=== PATIENT | male | born 1985 | race Caucasian/White ===

== ENCOUNTER 2023-07-05 22:36 | Inpatient (IN) | payer MEDICAID ==
[~2023-07-05] VITALS: Ht 182.9 cm; Wt 60.5 kg
[2023-07-05 22:43] VITALS: BP 121/79; PULSE 75; RESP 16; TEMP 97.4; O2SAT 98
[2023-07-05] MEDS ORDERED: NACL 0.9% 1,000 ML IV ONE (22:55)
[2023-07-05 23:06] LABS: BASOPHILS # (AUTO) 0.2 K/uL (0.00-0.22); BASOPHILS % (AUTO) 3.6 % (0.0-2.0); EOSINOPHILS # (AUTO) 0.1 K/uL (0-0.4); EOSINOPHILS % (AUTO) 1.1 % (0.0-4.0); LYMPHOCYTES % (AUTO) 45.2 % (20.5-51.1); MEAN CORPUSCULAR HEMOGLOBIN 21 pg (27-31); MEAN CORPUSCULAR HGB CONC 30 g/dL (33-37); MEAN CORPUSCULAR VOLUME 68.5 fL (80-94); MONOCYTES # (AUTO) 0.6 K/uL (0.8-1.0); MONOCYTES % (AUTO) 9.3 % (1.7-9.3); NEUTROPHILS # (AUTO) 2.7 K/uL (1.8-7.7); NEUTROPHILS % (AUTO) 40.8 % (42.2-75.2); PLATELET COUNT (AUTO) 59 K/uL (140-450); RED BLOOD CELL COUNT(AUTO) 2.82 MIL/uL (4.20-6.10); WHITE BLOOD COUNT (AUTO) 6.7 K/uL (4.8-10.8)
[2023-07-05 23:08] LABS: HEMATOCRIT 19.3 % (36-52); HEMOGLOBIN 5.8 g/dL (12.0-18.0)
[2023-07-05 23:34] LABS: ALANINE AMINOTRANSFERASE 30 U/L (12-78); ALBUMIN 3.4 g/dL (3.4-5.0); ALKALINE PHOSPHATASE 156 U/L (50-136); ANION GAP 14.6 (8-16); ASPARTATE AMINOTRANSFERASE 80 U/L (15-37); CALCIUM 7.2 mg/dL (8.5-10.1); CARBON DIOXIDE 27.5 mmol/L (21-32); CHLORIDE 104 mmol/L (98-107); CREATININE 0.5 mg/dL (0.6-1.3); GFR ARICAN-AMERICAN 243 mL/min (>90); GFR NON ARICAN-AMERICAN 201 mL/min (>90); GLUCOSE 110 mg/dL (74-106); POTASSIUM 3.1 mmol/L (3.5-5.1); SODIUM SERUM 143 mmol/L (136-145); TOTAL BILIRUBIN 0.7 mg/dL (0.0-1.0); TOTAL PROTEIN, SERUM 7.9 g/dL (6.4-8.2); UREA NITROGEN, BLOOD 5 mg/dL (7-18)
[2023-07-05 23:39] LABS: ACETAMINOPHEN < 0.5 ug/ml (10-30); SALICYLATE < 2.8 mg/dL (2.8-20.0)
[2023-07-05 23:41] LABS: ALCOHOL, BLOOD 429 mg/dL (<10)
[2023-07-05 23:46] LABS: INR 1.3 (0.8-1.2); PARTIAL THROMBOPLASTIN TIME 28.3 secs (22-35.6); PROTHROMBIN TIME 13.4 secs (10.8-13.4)
[2023-07-06] MEDS ORDERED: ACETAMINOPHEN 325 MG TAB PO PRN ×2 (02:15→07:10)
[2023-07-06] MEDS ORDERED: DOCUSATE SODIUM 100 MG GELCAP PO PRN ×2 (02:15→07:10)
[2023-07-06] MEDS ORDERED: POTASSIUM CHLORIDE 10 MEQ TABER PO PRN ×2 (02:15→07:10)
[2023-07-06] MEDS ORDERED: guaiFENesin DM 200/20 MG-10 ML 10 ML UDC PO PRN (02:15)
[2023-07-06] MEDS ORDERED: NACL 0.9% 1,000 ML IV SCH (02:15)
[2023-07-06] MEDS ORDERED: ONDANSETRON 4 MG/2 ML VIAL IM/IVP PRN (02:15)
[2023-07-06] MEDS ORDERED: HYDROcodone/APAP 7.5/325 MG 1 TAB PO PRN (02:15)
[2023-07-06] MEDS ORDERED: ZOLPIDEM 5 MG TAB PO PRN (02:15)
[2023-07-06] MEDS ORDERED: ONDANSETRON 4 MG/2 ML VIAL IVP PRN (07:10)
[2023-07-06] MEDS ORDERED: LORazepam 2 MG/ML VIAL IVP PRN (07:10)
[2023-07-06] MEDS ORDERED: ZOLPIDEM 10 MG TAB PO PRN (07:10)
[2023-07-06] MEDS ORDERED: MAG SULF 2000 MG/WATER PREMIX 50 ML IV PRN (07:10)
[2023-07-06] MEDS ORDERED: POTASSIUM CHLORIDE 10 MEQ TABER PO SCH (07:16)
[2023-07-06 07:32] LABS: BASOPHILS # (AUTO) 0.2 K/uL (0.00-0.22); BASOPHILS % (AUTO) 3.8 % (0.0-2.0); EOSINOPHILS # (AUTO) 0.1 K/uL (0-0.4); EOSINOPHILS % (AUTO) 1.5 % (0.0-4.0); HEMATOCRIT 23.1 % (36-52); HEMOGLOBIN 7.1 g/dL (12.0-18.0); LYMPHOCYTES # (AUTO) 1.7 K/uL (2.0-11.5); LYMPHOCYTES % (AUTO) 40.9 % (20.5-51.1); MEAN CORPUSCULAR HEMOGLOBIN 22 pg (27-31); MEAN CORPUSCULAR HGB CONC 31 g/dL (33-37); MEAN CORPUSCULAR VOLUME 69.8 fL (80-94); MONOCYTES # (AUTO) 0.4 K/uL (0.8-1.0); NEUTROPHILS # (AUTO) 1.9 K/uL (1.8-7.7); NEUTROPHILS % (AUTO) 44.8 % (42.2-75.2); PLATELET COUNT (AUTO) 49 K/uL (140-450); RED BLOOD CELL COUNT(AUTO) 3.31 MIL/uL (4.20-6.10); RED CELL DISTRIBUTION WIDTH 19.1 % (11.6-13.7); WHITE BLOOD COUNT (AUTO) 4.2 K/uL (4.8-10.8)
[2023-07-06 07:46] LABS: ALBUMIN 3.1 g/dL (3.4-5.0); ANION GAP 13.2 (8-16); CALCIUM 6.8 mg/dL (8.5-10.1); CARBON DIOXIDE 28.9 mmol/L (21-32); CREATININE 0.5 mg/dL (0.6-1.3); POTASSIUM 3.1 mmol/L (3.5-5.1); TOTAL BILIRUBIN 0.8 mg/dL (0.0-1.0); TOTAL PROTEIN, SERUM 7.4 g/dL (6.4-8.2)
[2023-07-06 08:25] VITALS: PULSE 93; RESP 21; O2SAT 100
[2023-07-06] MEDS: PANTOPRAZOLE 40 MG TABEC PO SCH (09:14)
[2023-07-06] MEDS: THIAMINE 100 MG TAB PO SCH (09:14)
[2023-07-06] MEDS: chlordiazePOXIDE 25 MG CAP PO SCH ×3 (09:15→19:05)
[2023-07-06 10:00] VITALS: BP 126/68; PULSE 78; RESP 18; TEMP 98.3; O2SAT 100
[2023-07-06] MEDS: FOLIC ACID 1 MG TAB PO SCH (11:56)
[2023-07-06 12:00] VITALS: PULSE 103
[2023-07-06 15:30] LABS: BASOPHILS # (AUTO) 0.1 K/uL (0.00-0.22); BASOPHILS % (AUTO) 2.7 % (0.0-2.0); EOSINOPHILS % (AUTO) 0.6 % (0.0-4.0); HEMATOCRIT 24.9 % (36-52); HEMOGLOBIN 7.8 g/dL (12.0-18.0); LYMPHOCYTES # (AUTO) 1.2 K/uL (2.0-11.5); LYMPHOCYTES % (AUTO) 27.9 % (20.5-51.1); MEAN CORPUSCULAR HEMOGLOBIN 22 pg (27-31); MEAN CORPUSCULAR HGB CONC 32 g/dL (33-37); MEAN CORPUSCULAR VOLUME 70.8 fL (80-94); MONOCYTES # (AUTO) 0.5 K/uL (0.8-1.0); MONOCYTES % (AUTO) 11.1 % (1.7-9.3); NEUTROPHILS # (AUTO) 2.5 K/uL (1.8-7.7); NEUTROPHILS % (AUTO) 57.7 % (42.2-75.2); PLATELET COUNT (AUTO) 39 K/uL (140-450); RED BLOOD CELL COUNT(AUTO) 3.52 MIL/uL (4.20-6.10); RED CELL DISTRIBUTION WIDTH 19.8 % (11.6-13.7); WHITE BLOOD COUNT (AUTO) 4.3 K/uL (4.8-10.8)
[2023-07-06 16:00] VITALS: BP 129/87; PULSE 82; PULSE 88; RESP 16; O2SAT 99
[2023-07-06] MEDS: NACL 0.45% 1,000 ML IV SCH (19:05)
[2023-07-06] MEDS: FERROUS SULFATE 325 MG TABEC PO SCH (19:06)
[2023-07-06 20:00] VITALS: BP 118/68; PULSE 81; PULSE 85; RESP 16; TEMP 98.9; O2SAT 100
[2023-07-06] MEDS: CALCIUM CARB 600 MG TAB PO SCH (20:27)
[2023-07-07] VITALS: BP 118/70; PULSE 69; PULSE 77; RESP 16; TEMP 99; O2SAT 99
[2023-07-07 04:00] VITALS: BP 128/78; PULSE 68; PULSE 70; RESP 18; TEMP 98.9; O2SAT 99
[2023-07-07 05:27] LABS: BASOPHILS # (AUTO) 0.2 K/uL (0.00-0.22); BASOPHILS % (AUTO) 3.6 % (0.0-2.0); EOSINOPHILS # (AUTO) 0.1 K/uL (0-0.4); EOSINOPHILS % (AUTO) 1.4 % (0.0-4.0); HEMATOCRIT 24.8 % (36-52); LYMPHOCYTES # (AUTO) 1.4 K/uL (2.0-11.5); LYMPHOCYTES % (AUTO) 28.1 % (20.5-51.1); MEAN CORPUSCULAR HEMOGLOBIN 23 pg (27-31); MEAN CORPUSCULAR HGB CONC 32 g/dL (33-37); MEAN CORPUSCULAR VOLUME 70.5 fL (80-94); MONOCYTES # (AUTO) 0.6 K/uL (0.8-1.0); MONOCYTES % (AUTO) 11.8 % (1.7-9.3); NEUTROPHILS # (AUTO) 2.7 K/uL (1.8-7.7); NEUTROPHILS % (AUTO) 55.1 % (42.2-75.2); PLATELET COUNT (AUTO) 35 K/uL (140-450); RED BLOOD CELL COUNT(AUTO) 3.52 MIL/uL (4.20-6.10); RED CELL DISTRIBUTION WIDTH 20.3 % (11.6-13.7)
[2023-07-07 06:15] LABS: ALBUMIN 3.1 g/dL (3.4-5.0); ANION GAP 12.1 (8-16); CALCIUM 7.5 mg/dL (8.5-10.1); CARBON DIOXIDE 27.1 mmol/L (21-32); CREATININE 0.5 mg/dL (0.6-1.3); POTASSIUM 3.2 mmol/L (3.5-5.1); TOTAL BILIRUBIN 1.3 mg/dL (0.0-1.0); TOTAL PROTEIN, SERUM 7.2 g/dL (6.4-8.2)
[2023-07-07] MEDS: NACL 0.45% 1,000 ML IV SCH (06:39)
[2023-07-07 08:00] VITALS: BP 132/73; PULSE 68; RESP 16; TEMP 98.5; O2SAT 100
[2023-07-07] MEDS: FOLIC ACID 1 MG TAB PO SCH (09:18)
[2023-07-07] MEDS: chlordiazePOXIDE 25 MG CAP PO SCH (09:19)
[2023-07-07] MEDS: CALCIUM CARB 600 MG TAB PO SCH (09:19)
[2023-07-07] MEDS: THIAMINE 100 MG TAB PO SCH (09:19)
[2023-07-07] MEDS: PANTOPRAZOLE 40 MG TABEC PO SCH (09:19)
[2023-07-07] MEDS: FERROUS SULFATE 325 MG TABEC PO SCH (09:21)
[2023-07-07] MEDS ORDERED: PANT40EC56 PO (10:04)
[2023-07-07] MEDS ORDERED: FOLI1TAB90 PO (10:04)
[2023-07-07] MEDS ORDERED: THIA-34 PO (10:04)
[2023-07-07] MEDS ORDERED: FER325 PO (10:04)
[2023-07-07 11:35] VITALS: BP 138/80; PULSE 79; RESP 20; TEMP 98.5
[2023-07-07 12:00] VITALS: PULSE 103
[2023-07-07 15:06] LABS: HEMOGLOBIN A1C 5.3 % (4.8-5.6)
[2023-07-08 06:08] LABS: FOLIC ACID 13.6 ng/mL (>3.0)
== END 2023-07-07 13:10 | disposition home or self-care (01) | DRG 425 ==
LOC: MED 22:36 → MTU 07-06 02:16 → MIC 07-06 07:28
PROVIDERS: ADMIT Student in an Organized Health Care Education/Training Program; ATTEND Student in an Organized Health Care Education/Training Program
PROC: 30233N1 Transfusion of Nonautologous Red Blood Cells into Peripheral Vein, Percutaneous Approach (ICD-10-PCS; principal; 2023-07-06)
DX: E87.6 Hypokalemia (principal); G93.41 Metabolic encephalopathy; R65.10 Systemic inflammatory response syndrome (SIRS) of non-infectious origin without acute organ dysfunction; D63.8 Anemia in other chronic diseases classified elsewhere; F10.129 Alcohol abuse with intoxication, unspecified; R74.01 Elevation of levels of liver transaminase levels
CPT/HCPCS: 36415; 36430; 70450; 80053; 82607; 82728; 82746; 83036; 83540; 83735; 84484; 85025; 85610; 85730; 86886; 86900; 86901; 86920; 87081; 93005; 96360; 99291; G0480; G0482; J3475; P9016